=== PATIENT | male | born 1990 ===

== ENCOUNTER 2016-11-13 20:30 | Emergency (ER) | payer MEDICAID ==
[2016-11-13 20:30] VITALS: BMI 30.9
[2016-11-13 20:40] VITALS: BP 143/75; PULSE 85; RESP 20; TEMP 98.1; O2SAT 99
[2016-11-13] MEDS ORDERED: Sodium Chloride 0.9% 1,000 ML IV STA (20:46)
--- NOTE | 2016-11-13 21:04 | ED PDOC ---
HPI: Headache Time Seen by Provider: 11/13/16 20:41 Chief Complaint (Nursing): Headache Chief Complaint (Provider): Headache History Per: Patient History/Exam Limitations: no limitations Onset/Duration Of Symptoms: Days (x1) Current Symptoms Are (Timing): Still Present Additional Complaint(s): Valentin Siddiqui is a 26 year old male who presents to the emergency department with a complaint of migraine headache radiating from back of head to the front associated with photophobia ongoing since 4:00 today. Patient reported taking 2 tablets of Motrin at beginning of onset then another 2 tablets at 15:30 with no relief of symptoms. Old charts reviewed, patient has been in ED several times for similar symptoms. PMD: Hilario Auguste Past Medical History Reviewed: Historical Data, Nursing Documentation, Vital Signs Vital Signs: Last Vital Signs Temp 98.1 F 11/13/16 20:37 Pulse 85 11/13/16 20:37 Resp 20 11/13/16 20:37 BP 143/75 11/13/16 20:37 Pulse Ox 99 11/13/16 20:37 - Medical History PMH: Asthma, Back Problems, CHF, Migraine - Surgical History Surgical History: No Surg Hx, Tonsillectomy - Family History Family History: States: Unknown Family Hx - Home Medications Home Medications: Ambulatory Orders Medication Instructions Recorded Prednisone 3 tab-cap PO QAM #15 tab 06/08/14 Aspirin/Acetaminophen/Caffeine 1 each PO Q8 PRN #12 tablet 07/12/15 [Excedrin Migraine Caplet] Cyclobenzaprine [Cyclobenzaprine 10 mg PO BID PRN #10 tab 11/04/15 HCl] Famotidine [Pepcid] 20 mg PO BID #20 tab 11/04/15 Naproxen 500 mg PO BID PRN #20 tab 11/04/15 Metoclopramide [Reglan] 10 mg PO Q8 PRN #20 tab 12/15/15 Ciprofloxacin HCl [Cipro] 1 tab PO BID #14 tablet 12/20/15 Docusate [Colace] 1 tab PO BID #14 cap 12/20/15 Naproxen 1 tab PO BID PRN #14 tab 12/20/15 Phosphate Enema [Fleet Enema 135 135 ml RC ONCE PRN #1 nma 12/20/15 Ml] Albuterol 0.083% [Albuterol 0.083% 3 ml IH Q4 PRN #30 neb 05/06/16 Inhal Sasha (2.5 mg/3 ml) UD] Methylprednisolone [Medrol Dose 4 mg PO DAILY #21 mg 05/06/16 Pack (21 tabs)] Nebulizer [Aeroeclipse] 1 each MC Q4 PRN #1 each 05/06/16 Acetaminophen/Butalbital/Caf 1 tab PO TID #15 tab 11/13/16 [Fioricet] - Allergies Allergies/Adverse Reactions: Allergies Allergy/AdvReac Type Severity Reaction Status Date / Time No Known Allergies Allergy Verified 11/13/16 20:40 Review of Systems ROS Statement: Except As Marked, All Systems Reviewed And Found Negative Neurological: Positive for: Headache (migraine) Physical Exam - Reviewed Nursing Documentation Reviewed: Yes Vital Signs Reviewed: Yes - Physical Exam Appears: Positive for: Well, Non-toxic, No Acute Distress Skin: Positive for: Normal Color Eye Exam: Positive for: Normal appearance Neck: Positive for: Normal, Painless ROM, Supple Neurologic/Psych: Positive for: Alert, clinical operations specialist II-XII, Oriented - ECG O2 Sat by Pulse Oximetry: 99 (RA) Pulse Ox Interpretation: Normal Medical Decision Making Medical Decision Making: Initial Impression: Tension headache Initial Plan: * Tylenol 975mg PO * Reglan 10mg IVP * NS 1,000ml IV per 999mls/hr After first eval, pt reports feeling greatly improved. Neuro exam non focal. Stable for discharge at this time Scribe Attestation: Documented by Yoli Geronimo, acting as a scribe for Sallie Dc Provider Scribe Attestation: All medical record entries made by the Scribe were at my direction and personally dictated by me. I have reviewed the chart and agree that the record accurately reflects my personal performance of the history, physical exam, medical decision making, and the department course for this patient. I have also personally directed, reviewed, and agree with the discharge instructions and disposition. Disposition - Clinical Impression Clinical Impression: Acute headache - Patient ED Disposition Is Patient to be Admitted: No - Disposition Disposition: Routine/Home Disposition Time: 22:29 Condition: STABLE Prescriptions: Acetaminophen/Butalbital/Caf [Fioricet] 1 tab PO TID #15 tab Instructions: Acute Headache (ED), Tension Headache (ED) Forms: [facility] (Chadian) - POA Present On Arrival: None
== END 2016-11-13 22:52 | disposition home or self-care (01) ==
LOC: H.ER 20:30
DX: G43.909 Migraine, unspecified, not intractable, without status migrainosus (principal); Z79.82 Long term (current) use of aspirin

== ENCOUNTER 2017-05-05 20:46 | Emergency (ER) | payer MEDICAID ==
[2017-05-05 20:47] VITALS: BMI 30.9
--- NOTE | 2017-05-05 21:40 | ED PDOC ---
HPI: General Adult Time Seen by Provider: 05/05/17 21:09 Chief Complaint (Nursing): Flu-like Symptoms Chief Complaint (Provider): Flu-like symptoms History Per: Patient History/Exam Limitations: no limitations Onset/Duration Of Symptoms: Days (4) Additional Complaint(s): Patient is a 26 y/o male with no significant past medical history presenting to the emergency department for a fever ongoing for four days. Reports that he was diagnosed with the flu four days ago by his PMD via a flu swab, and was given Tamiflu. Despite compliance with medication, reports ongoing symptoms of generalized malaise, cough, fever, and body aches. Denies sore throat, chest pain, shortness of breath, abdominal pain, flank pain, urinary symptoms, nausea , vomiting, diarrhea, recent travel, or other complaints. PCP: Dr. Hilario Auguste Past Medical History Reviewed: Historical Data, Nursing Documentation, Vital Signs Vital Signs: Last Vital Signs Temp 99.1 F 05/05/17 21:04 Pulse 102 H 05/05/17 21:04 Resp 16 05/05/17 21:04 BP 129/87 05/05/17 21:04 Pulse Ox 98 05/05/17 21:57 - Medical History PMH: Asthma, Back Problems, CHF, Migraine - Surgical History Surgical History: Tonsillectomy - Family History Family History: States: Unknown Family Hx - Social History Current smoker - smoking cessation education provided: No Ex-Smoker (has not smoked in the last 12 months): No Alcohol: Social Drugs: Denies - Home Medications Home Medications: Ambulatory Orders Medication Instructions Recorded Prednisone 3 tab-cap PO QAM #15 tab 06/08/14 Aspirin/Acetaminophen/Caffeine 1 each PO Q8 PRN #12 tablet 07/12/15 [Excedrin Migraine Caplet] Cyclobenzaprine [Cyclobenzaprine 10 mg PO BID PRN #10 tab 11/04/15 HCl] Famotidine [Pepcid] 20 mg PO BID #20 tab 11/04/15 Naproxen 500 mg PO BID PRN #20 tab 11/04/15 Metoclopramide [Reglan] 10 mg PO Q8 PRN #20 tab 12/15/15 Ciprofloxacin HCl [Cipro] 1 tab PO BID #14 tablet 12/20/15 Docusate [Colace] 1 tab PO BID #14 cap 12/20/15 Naproxen 1 tab PO BID PRN #14 tab 12/20/15 Phosphate Enema [Fleet Enema 135 135 ml RC ONCE PRN #1 nma 12/20/15 Ml] Albuterol 0.083% [Albuterol 0.083% 3 ml IH Q4 PRN #30 neb 05/06/16 Inhal Sasha (2.5 mg/3 ml) UD] Methylprednisolone [Medrol Dose 4 mg PO DAILY #21 mg 05/06/16 Pack (21 tabs)] Nebulizer [Aeroeclipse] 1 each MC Q4 PRN #1 each 05/06/16 Acetaminophen/Butalbital/Caf 1 tab PO TID #15 tab 11/13/16 [Fioricet] Ibuprofen [Motrin Tab] 800 mg PO TID PRN #20 tab 05/05/17 - Allergies Allergies/Adverse Reactions: Allergies Allergy/AdvReac Type Severity Reaction Status Date / Time No Known Allergies Allergy Verified 11/13/16 20:40 Review of Systems ROS Statement: Except As Marked, All Systems Reviewed And Found Negative Constitutional: Positive for: Fever, Malaise, Other (body aches) ENT: Negative for: Throat Pain Cardiovascular: Negative for: Chest Pain Respiratory: Positive for: Cough. Negative for: Shortness of Breath Gastrointestinal: Negative for: Nausea, Vomiting, Abdominal Pain, Diarrhea Genitourinary Male: Negative for: Dysuria, Frequency, Hematuria Musculoskeletal: Negative for: Other (flank pain) Physical Exam - Reviewed Nursing Documentation Reviewed: Yes Vital Signs Reviewed: Yes - Physical Exam Comments: GENERAL APPEARANCE: Patient is awake, alert, oriented x 3, in no acute distress. SKIN: Warm, dry; (-) cyanosis, (-) rash. (-) Decubitus Ulcer EYES: (-) conjunctival pallor, (-) scleral icterus, (-) conjunctival hemorrhage. ENMT: Dry mucous membranes, TMs: (-) erythema. Airway patent: (-) stridor. Pharynx: (-) erythema, (-) exudate. NECK: (-) tenderness, (-) stiffness, (-) meningismus, (-) lymphadenopathy. CHEST AND RESPIRATORY: (-) accessory muscle use. Lungs: (-) rales, (-) rhonchi, (-) wheezes, (-) rub; breath sounds equal bilaterally. HEART AND CARDIOVASCULAR: (+) tachycardia (-) irregularity; (-) murmur, (-) gallop, (-) rub. ABDOMEN AND GI: Soft; (-) tenderness, (-) guarding; (-) organomegaly; (-) mass ; (-) CVA tenderness. EXTREMITIES: (-) deformity; (-) cellulitis, (-) lymphangitis; (-) subungual hemorrhage; (-) edema. NEURO AND PSYCH: Mental status as above; (-) focal findings. - Laboratory Results Result Diagrams: 05/05/17 22:15 05/05/17 21:43 - ECG O2 Sat by Pulse Oximetry: 98 (RA) Pulse Ox Interpretation: Normal Medical Decision Making Medical Decision Making: Time: 21:34 Initial impression: Flu-like symptoms Initial plan: CMP CBC CXR Toradol 30 mg IVP Normal Saline IV Insertion Reevaluation Considering that patient is tachycardic and mildly dehydrated on exam, IV fluids and CXR were ordered. 21:50 CXR : NAD, as read by TAYA. Patient advised that official radiology read of XR is still pending and will call the patient if there is any discrepancy within 24 hours. --- Labs reviewed. On re-evaluation, patient feels better and is tolerating fluids well. On exam, patient remains AAOx3, no meningismus noted, cardiac: regular, rate, and rhythm. VS T 97.3 P 82 BP 113/59. --- Based on history, exam and diagnostic results plan will be for outpatient care. Advised to follow up with primary care physician in 1-2 days without fail. Advised to take medication as prescribed. Drink plenty of fluids. Return to the emergency room at any time for any new or worsening symptoms. Patient states he fully agrees with and understands discharge instructions. States that he agrees with the plan and disposition. Verbalized and repeated discharge instructions and plan. I have given the patient opportunity to ask any additional questions. ~ Scribe Attestation: Documented by Charlette Ramos, acting as a scribe for TAYA Julien. Provider Scribe Attestation: All medical record entries made by the Scribe were at my direction and personally dictated by me. I have reviewed the chart and agree that the record accurately reflects my personal performance of the history, physical exam, medical decision making, and the department course for this patient. I have also personally directed, reviewed, and agree with the discharge instructions and disposition. Disposition - Clinical Impression Clinical Impression: Influenza, Dehydration - Patient ED Disposition Is Patient to be Admitted: No Counseled Patient/Family Regarding: Studies Performed, Diagnosis, Need For Followup, Rx Given - Disposition Referrals: Hilario Auguste MD [Primary Care Provider] - Disposition: Routine/Home Disposition Time: 23:00 Condition: IMPROVED Additional Instructions: Thank you for letting us take care of you today. You were treated for influenza , dehydration. The emergency medical care you received today was directed at your acute symptoms. If you were prescribed any medication, please fill it and take as directed. It may take several days for your symptoms to resolve. Return to the Emergency Department if your symptoms worsen, do not improve, or if you have any other problems. Please contact your doctor in 2 days for re-evaluation and follow up. Bring any paperwork you were given at discharge with you along with any medications you are taking to your follow up visit. Our treatment cannot replace ongoing medical care by a primary care provider (PCP) outside of the emergency department. Thank you for allowing the [facility] team to be part of your care today. 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
[2017-05-05] MEDS: Sodium Chloride 0.9% 1,000 ML IV SCH ×2 (22:00→22:54)
[2017-05-05 22:10] LABS: BASO % 0.2 % (0.0-2.0); EOS % 0.2 % (0.0-4.0); HEMOGLOBIN 13.9 g/dL (12.0-18.0); LYMPH # 1.2 K/uL (1.0-4.3); LYMPH % 10.2 % (20.0-40.0); MEAN CELL VOLUME 90.2 fl (80.0-94.0); MEAN CORPUSCULAR HEMOGLOBIN 30.4 pg (27.0-31.0); MEAN CORPUSCULAR HGB CONC 33.7 g/dL (33.0-37.0); MEAN PLATELET VOLUME 9.3 fl (7.2-11.7); MONO # 1.6 K/uL (0.0-0.8); MONO % 14.2 % (0.0-10.0); NEUT # 8.8 K/uL (1.8-7.0); NEUT % 75.2 % (50.0-75.0); NRBC % 0.1 % (0.0-0.0); RBC 4.58 Mil/uL (4.40-5.90); RED CELL DISTRIBUTION WIDTH 12.9 % (11.5-14.5); WHITE BLOOD COUNT 11.7 K/uL (4.8-10.8)
[2017-05-05 22:20] LABS: ALB/GLOB RATIO 1.2 (1.0-2.1); ALBUMIN 4.5 g/dL (3.5-5.0); ALT/SGPT 58 U/L (21-72); AST/SGOT 33 U/L (17-59); BLOOD UREA NITROGEN 13 mg/dl (9-20); CALCIUM 9.6 mg/dL (8.4-10.2); GFR AFRICAN-AMERICAN > 60; GFR NON-AFRICAN AMERICAN > 60
[2017-05-05 23:02] VITALS: BP 113/59; PULSE 82; RESP 18; TEMP 97.3
[2017-05-05 23:03] VITALS: O2SAT 98
--- NOTE | 2017-05-06 10:04 | RAD ---
HISTORY: cough COMPARISON: Chest radiograph dated 05/06/2016. TECHNIQUE: Chest PA and lateral FINDINGS: LUNGS: No active pulmonary disease. PLEURA: No significant pleural effusion identified. No pneumothorax apparent. CARDIOVASCULAR: Normal. OSSEOUS STRUCTURES: No significant abnormalities. VISUALIZED UPPER ABDOMEN: Normal. OTHER FINDINGS: None. IMPRESSION: No active disease.
== END 2017-05-05 23:41 | disposition home or self-care (01) ==
LOC: H.ER 20:46
DX: J11.1 Influenza due to unidentified influenza virus with other respiratory manifestations (principal); E86.0 Dehydration; J45.909 Unspecified asthma, uncomplicated
CPT/HCPCS: 71046; 80053; 85025; 96374; 99283; J1885; J7040